=== PATIENT | male | born 1985 | race Caucasian/White ===

== ENCOUNTER 2021-06-05 19:40 | Emergency (ER) | payer SELFPAY ==
[~2021-06-05] VITALS: Ht 185.4 cm; Wt 85.0 kg
[2021-06-05 20:23] VITALS: TEMP 98.7
[2021-06-05 22:09] LABS: COLLECTION METHOD CLEAN CATCH
[2021-06-05 22:14] LABS: MUCOUS Present /lpf; PH 5 (5-8); SQUAMOUS EPITHELIAL 0-2 /hpf; URINE APPEARANCE Clear; URINE BACTERIA None Seen /hpf; URINE BILIRUBIN Negative (NEGATIVE); URINE BLOOD Negative (NEGATIVE); URINE COLOR Yellow; URINE GLUCOSE Negative (NEGATIVE); URINE KETONE Negative (NEGATIVE); URINE LEUKOCYTE ESTERASE Negative (NEGATIVE); URINE NITRATE Negative (NEGATIVE); URINE PROTEIN(semi-quant) Negative (NEGATIVE); URINE RBC 0-2 /hpf; URINE UROBILINOGEN Negative (NEGATIVE)
[2021-06-05 23:42] VITALS: BP 145/82; PULSE 81
== END 2021-06-05 23:42 | disposition home or self-care (01) ==
LOC: COL.ER 19:40
PROVIDERS: Emergency Medicine
DX: R31.9 Hematuria, unspecified (principal); F17.210 Nicotine dependence, cigarettes, uncomplicated

== ENCOUNTER 2021-06-09 20:18 | Emergency (ER) | payer SELFPAY ==
[~2021-06-09] VITALS: Ht 185.4 cm; Wt 88.6 kg
[2021-06-09 20:22] VITALS: TEMP 97.2
[2021-06-09 20:48] VITALS: BP 178/74; PULSE 79
== END 2021-06-09 20:48 | disposition home or self-care (01) ==
LOC: COL.ER 20:18
DX: F41.1 Generalized anxiety disorder (principal); F17.210 Nicotine dependence, cigarettes, uncomplicated